=== PATIENT | female | born 1990 | race African-American/Black ===

== ENCOUNTER 2020-12-20 00:34 | Emergency (ER) | payer MEDICAID ==
[~2020-12-20] VITALS: Ht 162.6 cm; Wt 69.9 kg
[2020-12-20] MEDS ORDERED: BENZOCAINE (DENTAL) 20 % SPRAY 60ML MT ONE (02:45)
[2020-12-20 02:55] VITALS: BP 149/90
[2020-12-20] MEDS ORDERED: SODIUM CHLORIDE 0.9% 1,000 ML IV ONE (03:15)
[2020-12-20] MEDS ORDERED: CLINDAMYCIN 900MG IV 50 ML IV ONE (03:15)
[2020-12-20] MEDS ORDERED: KETOROLAC TROMETH 30 MG/ML 1ML VIAL IV ONE (03:30)
== END 2020-12-20 04:43 | disposition home or self-care (01) ==
LOC: ER 00:34
DX: K05.6 Periodontal disease, unspecified (principal); M27.51 Perforation of root canal space due to endodontic treatment
CPT/HCPCS: 96365; 96375; 99284; J1885; J3490; J7030